=== PATIENT | female | born 1950 | race Asian ===

== ENCOUNTER 2024-10-31 07:54 | Emergency (ER) | payer MEDICARE, OTHER ==
[~2024-10-31] VITALS: Ht 147.3 cm; Wt 47.7 kg
[2024-10-31 07:59] VITALS: TEMP 98
[2024-10-31] MEDS: OXYMETAZOLINE HCL 0.05% 15 ML NASAL SPRAY NASAL ONE (08:40)
[2024-10-31 09:35] VITALS: BP 153/97; PULSE 94; RESP 18; O2SAT 97
== END 2024-10-31 09:45 | disposition home or self-care (01) ==
LOC: EMS 07:54
DX: R04.0 Epistaxis (principal); I10 Essential (primary) hypertension; E78.00 Pure hypercholesterolemia, unspecified
CPT/HCPCS: 99282; Z7502; Z7610